=== PATIENT | female | born 1985 | race Caucasian/White ===

== ENCOUNTER 2022-06-30 14:00 | Emergency (ER) | payer OTHER, SELFPAY ==
--- NOTE | ~2022-06-30 | XR_ITS ---
EXAMINATION: LEFT ANKLE 2 VIEWS LEFT TIB-FIB 4 VIEWS CLINICAL INFORMATION: Deformity status post trauma COMPARISON: None TECHNIQUE: As above nonweightbearing FINDINGS: Acute fracture subluxation about the ankle joint. Widening of the medial ankle mortise. Comminuted mildly displaced and angulated distal tibial diaphyseal fracture without extension to the ankle joint. No proximal deformity. XR/XR ankle LT min 3V IMPRESSION: Acute fracture subluxation as above.
--- NOTE | ~2022-06-30 | XR_ITS ---
EXAMINATION: LEFT ANKLE 2 VIEWS LEFT TIB-FIB 4 VIEWS CLINICAL INFORMATION: Deformity status post trauma COMPARISON: None TECHNIQUE: As above nonweightbearing FINDINGS: Acute fracture subluxation about the ankle joint. Widening of the medial ankle mortise. Comminuted mildly displaced and angulated distal tibial diaphyseal fracture without extension to the ankle joint. No proximal deformity. XR/XR tibia fibula LT 2V IMPRESSION: Acute fracture subluxation as above.
[2022-06-30 14:09] VITALS: BP 141/89; PULSE 90; O2SAT 98
[2022-06-30 14:54] VITALS: BP 118/74; PULSE 91; RESP 19; TEMP 36.6; O2SAT 98; BMI 49.1
[2022-06-30] MEDS: oxyCODONE HCl Immed Release 5 MG TABLET PO (15:36)
[2022-06-30] MEDS: Ibuprofen 600 MG TABLET PO (15:36)
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
== END 2022-06-30 16:43 | disposition home or self-care (01) ==
PROVIDERS: Emergency Provider Internal Medicine; PCP Internal Medicine Medical Oncology
DX: S89.192A Other physeal fracture of lower end of left tibia, initial encounter for closed fracture (principal); V43.52XA Car driver injured in collision with other type car in traffic accident, initial encounter; Y93.89 Activity, other specified; Y92.411 Interstate highway as the place of occurrence of the external cause; Y99.9 Unspecified external cause status
CPT/HCPCS: 73590; 73610; 99283; 99284

== ENCOUNTER 2022-07-17 08:14 | Outpatient (REF) | payer OTHER, SELFPAY ==
--- NOTE | ~2022-07-17 | XR_ITS ---
EXAMINATION: XR ANKLE, LEFT CLINICAL INFORMATION: Pain left ankle and left foot. COMPARISON: Left tibia and fibula 06/30/2022. TECHNIQUE: AP, lateral, and mortise views of the left ankle. FINDINGS: There is a comminuted fracture mid to distal fibula with medial angulation. The fracture fragments are displaced. There is disrupted ankle mortise with medial subluxation of medial malleolus in relation to the talus. There is moderate bimalleolar soft tissue swelling. XR/XR ankle LT min 3V IMPRESSION: Comminuted fracture mid to distal fibula with subluxation of the ankle joint. The fracture fragments are displaced compared to previous study 06/30/2022. There is moderate bimalleolar soft tissue swelling. There is no callus formation seen to suspect any healing.
== END 2022-07-17 08:15 | disposition home or self-care (01) ==
LOC: HO.HOSX 08:14
PROVIDERS: Visit Provider Physician Assistant
DX: S82.832D Other fracture of upper and lower end of left fibula, subsequent encounter for closed fracture with routine healing (principal); V89.2XXD Person injured in unspecified motor-vehicle accident, traffic, subsequent encounter
CPT/HCPCS: 29515; 73610; 99202

== ENCOUNTER 2022-07-31 08:08 | Outpatient (REF) | payer OTHER, SELFPAY ==
--- NOTE | ~2022-07-31 | XR_ITS ---
EXAMINATION: XR ANKLE, LEFT CLINICAL INFORMATION: Fracture COMPARISON: Previous x-ray 07/17/2022 TECHNIQUE: AP, lateral, and mortise views of the left ankle. FINDINGS: There is a comminuted minimally displaced fracture of the distal fibular shaft. There is an unstable ankle mortise with medial ankle mortise widening. There is question of a a fracture of the lateral aspect of the distal tibia intra-articular with the tibiotalar joint. There also may be a small nondisplaced fracture of the adjacent lateral dome of the talus. There is diffuse soft tissue swelling and ankle joint effusion. XR/XR ankle LT min 3V IMPRESSION: Comminuted minimally displaced distal fibular shaft fracture. Unstable ankle mortise and question fractures of the lateral distal tibia intra-articular tibiotalar joint and lateral dome of the talus.
== END 2022-07-31 08:09 | disposition home or self-care (01) ==
LOC: HO.HOSX 08:08
PROVIDERS: Visit Provider Physician Assistant
DX: S82.832A Other fracture of upper and lower end of left fibula, initial encounter for closed fracture (principal); S93.432A Sprain of tibiofibular ligament of left ankle, initial encounter; V89.2XXA Person injured in unspecified motor-vehicle accident, traffic, initial encounter; Y93.9 Activity, unspecified; Y92.9 Unspecified place or not applicable; Y99.9 Unspecified external cause status
CPT/HCPCS: 73610; 99212

== ENCOUNTER 2022-08-02 12:42 | Day surgery (SDC) | payer OTHER, SELFPAY ==
--- NOTE | 2022-07-18 14:39 | HO.ANESPROP2 ---
Documented by User: Vi Torres NP 07/18/22 14:39 HPI - Anesthesia Eval Consult details Narrative: 37yo F for Left Fibula Fx ORIF with syndesmosis repair PMFSH Active Problems Active Problems: All Active Problems (Updated 07/18/22 @ 09:20 by Sabine Garza, ELLI) Fracture of distal end of fibula (Acute) Ankle syndesmosis disruption (Acute) Past Medical History Medical History (Updated 07/18/22 @ 09:20 by Sabine Garza RN) Back pain Sciatica Surgical History Surgical History (Updated 08/02/22 @ 12:57 by Carleen Schroeder) History of cholecystectomy Previous back surgery Social History Social History (Updated 07/17/22 @ 09:27 by DAISHA Howell) Patient Tobacco Use Status: Current everyday Tobacco user Tobacco use type: Cigarette Cigarettes Per Day: 15 Years Smoked: 10 Smoked in Last 30 Days: Yes Use of substances other than those prescribed or required for medical reasons: Yes Substance Use Frequency: Daily Are you DNR?: No Advance Directives: No Advance Directives Information Provided: Yes Current occupational status: employed 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, rt hand Meds Allergies Allergy/AdvReac Type Severity Reaction Status Date / Time No Known Allergies Allergy Verified 08/02/22 12:57 Exam Exam Date and Time: July 18, [id number] Assessment and Plan Assessment Anesthesia Assessment: Chart Reviewed Documented by User: Elijah Perera MD 08/02/22 15:44 PMFSH Past Medical History Medical History (Updated 07/18/22 @ 09:20 by Sabine Garza RN) Back pain Sciatica Family History Family history of problems with anesthesia: No Surgical History Surgical History (Updated 08/02/22 @ 12:57 by Carleen Schroeder) History of cholecystectomy Previous back surgery History of Problems with Anesthesia: No Social History Social History (Updated 07/17/22 @ 09:27 by DAISHA Howell) Patient Tobacco Use Status: Current everyday Tobacco user Tobacco use type: Cigarette Cigarettes Per Day: 15 Years Smoked: 10 Smoked in Last 30 Days: Yes Use of substances other than those prescribed or required for medical reasons: Yes Substance Use Frequency: Daily Are you DNR?: No Advance Directives: No Advance Directives Information Provided: Yes Current occupational status: employed 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, rt hand Meds Allergies Allergy/AdvReac Type Severity Reaction Status Date / Time No Known Allergies Allergy Verified 08/02/22 12:57 Exam Airway Mallampati Class: III TM Dist: >3cm Neck ROM: Full Loose/Missing/Broken Teeth: Yes (extemely poor dentition ) Heart: S1,S2 Lungs: b/l breath sounds Assessment and Plan Assessment Anesthesia Assessment: Anesthesia Plan Discussed Final Anesthetic Review Family History of Problems with Anesthesia: No History of Problems with Anesthesia: No NPO: Yes ASA Class: III Final Preanesthetic Review: Meds/Allgs Chart Reviewed, Consent Obtained/Reviewed and Anes Risks/Benef Reviewed Patient Risk: Intermediate Procedure Risk: Intermediate Anesthetic Plan Anesthetic Plan: GA Disposition: Standard PACU
[2022-08-02] VITALS (16 sets, daily range): BP systolic 118–159; BP diastolic 69–111; PULSE 78–99; RESP 15–20; TEMP 36.2–37.3; O2SAT 92–99; BMI 49.6
--- NOTE | ~2022-08-02 | FL_ITS ---
EXAMINATION: XR FLUOROSCOPY WITH IMAGES CLINICAL INFORMATION: Open reduction internal fixation lower leg fracture with asymmetric mortise COMPARISON: Recent radiographs left ankle 07/31/2022, 07/17/2022 TECHNIQUE: Fluoroscopy performed by Dr. Noel Mckee. Fluoroscopy time: 0.7 minutes. Cumulative Dose: 3.30 mGy. DAP: 0.0574 Gycm2. Images: 6. FINDINGS: There are postsurgical changes with small plates medial side distal tibia and compression plate lateral side distal fibula. There is a screw spanning through the fibula and tibia. Hardware is intact. The ankle mortise is symmetric. The distal fibular shaft fracture alignment is improved. Osteochondral lesion or occult fracture lateral talar dome suggested on prior image 07/17/2022 is not clearly visualized. No talar dome depression. FL/FL guidance in OR IMPRESSION: Fluoroscopy for orthopedic reduction.
[2022-08-02 13:07] LABS: UPreg QC Valid YES; Urine Pregnancy NEGATIVE (NEGATIVE)
[2022-08-02] MEDS: Lactated Ringers 1,000 ML 100 ML IVCONT (13:16)
--- NOTE | 2022-08-02 13:26 | MHC.SHP ---
Pre-Procedural Eval Section A Date of Service: 08/02/22 The patient is an INPATIENT: No Changes since office visit: Yes Patient answered all questions; No Cold of Flu in the past 2 weeks, No New Medical Problems and No Changes in Medication The History & Physical has been completed within 30 days and I have reviewed it.: Yes Section B Chief Complaint: fibula fx,sprain Allergies: Allergies Allergy/AdvReac Type Severity Reaction Status Date / Time No Known Allergies Allergy Verified 08/02/22 12:57 Plan I have reviewed the history and physical and performed a pertinent physical examination on my patient. No changes have occurred unless specified.
--- NOTE | 2022-08-02 14:44 | PM.OP ---
Brief Operative Note Date of Service: 08/02/22 Pre-op diagnosis: left syndesmosis disruption and fibula fracture Post-op diagnosis: same Procedure: ORIF left syndesmosis Implants: Arthrex syndesmosis tightrope x2 [place] 3.5 mm cancellous screw Surgeon: Noel Mckee MD Anesthesia: GETA Was an Flight Communications Officer used for this Procedure?: Yes Flight Communications Officer: Jeanne Langley Estimated blood loss (mL): 50 IV fluids (mL): 1,000 Pathology: none sent Condition: stable
[2022-08-02] MEDS: oxyCODONE HCl Immed Release 5 MG TABLET PO (15:26)
[2022-08-02] MEDS: HYDROmorphone HCl 0.5 MG/0.5 ML SYRINGE 0.25 MG IVPUSH ×4 (15:45→16:05)
--- NOTE | 2022-08-08 13:06 | P.OP_ITS ---
Operative Note Operative Note Date of Service: 08/02/22 Narrative: Date of Service: 08/02/22 Pre-op diagnosis: left syndesmosis disruption and fibula fracture Post-op diagnosis: same Procedure: ORIF left syndesmosis Implants: Arthrex syndesmosis tightrope x2 [place] 3.5 mm cancellous screw Surgeon: Noel Mckee MD Anesthesia: GETA Was an Customer Marketing Manager used for this Procedure?: Yes Customer Marketing Manager: Jeanne Langley Estimated blood loss (mL): 50 IV fluids (mL): 1,000 Pathology: none sent Condition: stable Procedure in detail: Patient was brought to the operating room and placed supine on the operative table. All bony prominences were well padded and a time-out was called to identify proper site proper procedure proper surgeon. IV antibiotics per weight were administered. I began by exsanguinating limb is slightly tourniquet to 300 mm Hg. I then made a small posterolateral incision over the fibula. Full- thickness flaps were taken down to the distal fibula. This fracture was 5 weeks old and the syndesmosis was markedly displaced. I made an additional stab incision over the medial malleolus and used a large C-clamp to reduce the syndesmosis. I then placed two tightropes across the syndesmosis from posterior to anterior and lateral to medial. I used a 3 hole lateral plate for additional support and tightened these. The syndesmosis was reduced but there was still a positive external rotation stress test. At this point I made a 2 cm insision over the high fibula fracture. I tried to mobilize the fibula fracture but it was heavily calloused. Fixation would have required a large incision and takedown of a 5 wk olkd fracture and would no improve the syndesmosis. Therefore I chose to focus exclusively on the syndesmosis. An additional 4 cortical syndesmosis 3.5 cortical screw was placed lateral to medial just posterior to the distal aspect of the lateral plate. This corrected any remaining instability on stress testing. Therefore all instrumentation was removed and copious irrigation was performed. Absorbable suture and frida were used for closure and the patient was placed into sterile dressings and a well-padded posterior splint. Tourniquet was let down and the patient was extubated brought to recovery room in stable condition there were no known complications.
== END 2022-08-02 18:03 | disposition home or self-care (01) ==
LOC: HO.SSS 12:43
PROVIDERS: Nurse Practitioner; PCP Internal Medicine Medical Oncology; Visit Provider Orthopaedic Surgery
PROC: (CPT 27792; principal; 2022-08-02 14:00)
DX: S82.839A Other fracture of upper and lower end of unspecified fibula, initial encounter for closed fracture (principal); S93.439A Sprain of tibiofibular ligament of unspecified ankle, initial encounter; M54.30 Sciatica, unspecified side; V49.9XXA Car occupant (driver) (passenger) injured in unspecified traffic accident, initial encounter; Y93.9 Activity, unspecified; Y92.9 Unspecified place or not applicable; Y99.9 Unspecified external cause status; Z79.1 Long term (current) use of non-steroidal anti-inflammatories (NSAID); Z79.899 Other long term (current) drug therapy; Z98.890 Other specified postprocedural states; F17.210 Nicotine dependence, cigarettes, uncomplicated
CPT/HCPCS: 27792; 27829; 81025; C1713; J0131; J0690; J1100; J1170; J2250; J2405; J2550; J2795; J3010

== ENCOUNTER 2022-08-14 08:22 | Outpatient (REF) | payer OTHER, SELFPAY ==
--- NOTE | ~2022-08-14 | XR_ITS ---
EXAMINATION: XR ANKLE, LEFT CLINICAL INFORMATION: Fracture COMPARISON: Previous x-ray most recent July 2022 TECHNIQUE: AP, lateral, and mortise views of the left ankle. FINDINGS: There is a comminuted minimally displaced fracture of the distal fibular shaft. This appears unchanged. Fracture lines are still seen. There is minimal bony callus. There is orthopedic hardware in the distal tibia and fibula that appears unchanged. There is no ankle mortise widening. The bones are osteopenic. There are skin frida and soft tissue swelling. XR/XR ankle LT min 3V IMPRESSION: Stable orthopedic hardware in the distal tibia and fibula. Stable comminuted minimally displaced fracture of the distal fibular shaft.
== END 2022-08-14 08:23 | disposition home or self-care (01) ==
LOC: HO.HOSX 08:22
PROVIDERS: Visit Provider Physician Assistant
DX: S82.832A Other fracture of upper and lower end of left fibula, initial encounter for closed fracture (principal)
CPT/HCPCS: 29405; 73610

== ENCOUNTER 2022-09-13 08:13 | Outpatient (REF) | payer OTHER, SELFPAY | END 2022-09-13 08:14 | disposition home or self-care (01) | LOC: HO.HOSX 08:13 | PROVIDERS: Visit Provider Physician Assistant | DX: Z13.89 Encounter for screening for other disorder (principal) ==

== ENCOUNTER 2022-09-14 07:56 | Outpatient (REF) | payer OTHER, SELFPAY | END 2022-09-14 07:57 | disposition home or self-care (01) | LOC: HO.HOSX 07:56 | PROVIDERS: Visit Provider Physician Assistant | DX: Z13.89 Encounter for screening for other disorder (principal) ==

== ENCOUNTER 2022-09-15 09:59 | Outpatient (REF) | payer OTHER, SELFPAY ==
--- NOTE | ~2022-09-15 | XR_ITS ---
EXAMINATION: XR ankle LT min 3V CLINICAL INFORMATION: Reason for Exam M25.572 - Pain in left ankle and joints of left foot COMPARISON: None. TECHNIQUE: 3 views of the left ankle XR/XR ankle LT min 3V FINDINGS/IMPRESSION: * Comminuted fracture of the distal fibula with some surrounding callus formation and anterior displacement of the distal fracture fragment. * Tibial, fibular and tibia fibular syndesmosis orthopedic hardware is again noted without evidence of hardware complication. * Soft tissue swelling about the foot.
== END 2022-09-15 10:00 | disposition home or self-care (01) ==
LOC: HO.HOSX 09:59
PROVIDERS: Visit Provider Physician Assistant
DX: S82.832A Other fracture of upper and lower end of left fibula, initial encounter for closed fracture (principal); S93.432A Sprain of tibiofibular ligament of left ankle, initial encounter
CPT/HCPCS: 29405; 73610

== ENCOUNTER 2022-10-26 14:17 | Outpatient (REF) | payer OTHER, SELFPAY ==
--- NOTE | ~2022-10-26 | XR_ITS ---
EXAMINATION: XR ANKLE, LEFT CLINICAL INFORMATION: Pain. COMPARISON: Radiographs dated 09/20/2022. TECHNIQUE: AP, lateral, and mortise views of the left ankle. FINDINGS: A comminuted fracture is redemonstrated of the distal left fibular shaft, with butterfly fragment. There is adjacent callus formation. There are screw tracks noted within the distal fibula. There has been a prior distal tibiofibular syndesmosis. No hardware failure is seen. The ankle mortise is intact. No left ankle joint effusion is seen. Boehler's angle is normal. There are tiny posterior and plantar calcaneal spurs. No soft tissue gas or foreign body is seen. XR/XR ankle LT min 3V IMPRESSION: There is stable alignment of a comminuted fracture of the distal left fibula. There is adjacent callus formation. There is been a prior distal left tibiofibular syndesmosis.
== END 2022-10-26 14:18 | disposition home or self-care (01) ==
LOC: HO.HOSX 14:17
PROVIDERS: Visit Provider Orthopaedic Surgery
DX: S93.432D Sprain of tibiofibular ligament of left ankle, subsequent encounter (principal); S82.832D Other fracture of upper and lower end of left fibula, subsequent encounter for closed fracture with routine healing
CPT/HCPCS: 73610

== ENCOUNTER 2023-02-12 12:03 | Outpatient (REF) | payer OTHER, SELFPAY | END 2023-02-12 12:04 | disposition home or self-care (01) | LOC: HO.HOSX 12:03 | PROVIDERS: Visit Provider Orthopaedic Surgery | DX: Z13.89 Encounter for screening for other disorder (principal) ==